=== PATIENT | female | born 1995 ===

== ENCOUNTER 2018-02-02 19:52 | Emergency (ER) | payer OTHER ==
[2018-02-02] MEDS ORDERED: Al Hydrox/Mg Hydrox/Simet LIQ* 30 ML UDC PO ONE (20:13)
[2018-02-02] MEDS ORDERED: Lidocaine 2% VISCOUS* 15 ML UDC PO ONE (20:14)
--- NOTE | 2018-02-02 21:04 | UC ---
Cardiac HPI - HPI Summary HPI Summary: 22-year-old woman 22-year-old woman comes to clinic today with a chief complaint of chest pain. This started 2 days ago. It's sternal. Pain is worse with swallowing evening and also taking a deep breath. No fevers or chills does not feel short of breath. Does have a sore throat. No radiation. Discomforts about a 4 out of 10 at the worst. It gets a little better and a little worse at times. No significant change with activity. Patient had an Mirena IUD placed 6 days ago. No known family history of blood clots. No recent travel. No calf pain or tenderness. No known blood disease. - History of Current Complaint Chief Complaint: UCChestPain Stated Complaint: CHEST PAIN Time Seen by Provider: 02/02/18 20:01 Hx Last Menstrual Period: 01/26/18 Pain Intensity: 3 - Allergy/Home Medications Allergies/Adverse Reactions: Allergies Allergy/AdvReac Type Severity Reaction Status Date / Time No Known Allergies Allergy Verified 02/02/18 19:55 Home Medications: Home Medications Levonorgestrel (Iud) [Mirena IUD] 1 implant ONCE 02/02/18 [History Confirmed ] PMH/Surg Hx/FS Hx/Imm Hx Previously Healthy: Yes - Surgical History Surgical History: None - Family History Known Family History: Negative: Blood Disorder - Social History Alcohol Use: Occasionally Substance Use Type: None Smoking Status (MU): Never Smoked Tobacco Review of Systems All Other Systems Reviewed And Are Negative: Yes Constitutional: Positive: Negative Skin: Positive: Negative Eyes: Positive: Negative ENT: Positive: Negative Respiratory: Positive: Negative Cardiovascular: Positive: Chest Pain Gastrointestinal: Positive: Negative Genitourinary: Positive: Negative Motor: Positive: Negative Neurovascular: Positive: Negative Musculoskeletal: Positive: Negative Neurological: Positive: Negative Psychological: Positive: Negative Is Patient Immunocompromised?: No Physical Exam Triage Information Reviewed: Yes Appearance: Well-Appearing, No Pain Distress, Well-Nourished Vital Signs: Initial Vital Signs Temp 97 F 02/02/18 19:56 Pulse 87 02/02/18 19:56 Resp 18 02/02/18 19:56 BP 122/73 02/02/18 19:56 Pulse Ox 97 02/02/18 19:56 Vital Signs Reviewed: Yes Eye Exam: Normal Eyes: Positive: Conjunctiva Clear Neck exam: Normal Neck: Positive: Supple Respiratory: Positive: Lungs clear, Normal breath sounds, No respiratory distress, Other: - Mild tenderness to palpation in the superior sternum tenderness to palpation in the upper sternum Cardiovascular Exam: Normal Cardiovascular: Positive: RRR Abdomen Description: Positive: Nontender, Soft Musculoskeletal Exam: Normal Musculoskeletal: Positive: Strength Intact, ROM Intact, No Edema, Other: - NO CALF TENDERNESS Neurological Exam: Normal Neurological: Positive: Alert, Muscle Tone Normal Psychological Exam: Normal Psychological: Positive: Age Appropriate Behavior Skin Exam: Normal Diagnostics - EKG Cardiac Rate: NL - AT 20:21 Cardiac Rhythm: Sinus: Normal - 69BPM Ectopy: None ST Segment: Normal - Assessment/Plan Course Of Treatment: I reviewed the EKG and the chest x-ray results with the patient. EKG shows no acute disease process. Chest x-ray is also NAD. Radiologist reading is pending. Patient was given viscous lidocaine and Maalox in clinic and this decreased her pain briefly. Patient has no fevers she has no shortness of breath she is not tachycardic. She has no calf pain or tenderness. Her IUD is a progestin based IUD and therefore does not increase the risk of thrombosis. There is no family history of thrombosis no recent travel she is not a smoker. We discussed the possibility of a pulmonary embolus and the patient is low risk. She knows that if her condition gets worse she needs to get reevaluated in the emergency department. I also discussed the possibility of pericarditis. It has a normal EKG. Plan is to follow-up with [facility] go to the emergency department if she gets worse. We will start omeprazole here. - Clinical Impression Provider Diagnosis: Chest pain Discharge - Sign-Out/Discharge Documenting (check all that apply): Patient Departure All imaging exams completed and their final reports reviewed: No - Discharge Plan Condition: Stable Disposition: HOME Prescriptions: Omeprazole 20 mg PO BID #30 capsule. Patient Education Materials: Chest Pain (ED), Gastroesophageal Reflux Disease ( ED) Referrals: [facility] - Angelito SADLER [Primary Care Provider] - Additional Instructions: FOLLOW UP WITH YOUR DOCTOR. GO TO THE EMERGENCY DEPARTMENT FOR ANY WORSENING OF YOUR CONDITION; PAIN, SHORTNESS OF BREATH, YOU FEEL ILL OR QUESTIONS OR CONCERNS. - Billing Disposition and Condition Condition: STABLE Disposition: Home
[2018-02-02] MEDS ORDERED: Omeprazole CAP* 20 MG PO ONE (21:07)
--- NOTE | 2018-02-03 13:40 | UC ---
- Progress Note Progress Note: RADIOLOGY REPORT REVIEWED. UNREMARKABLE CHEST XRAY. NO CHANGE IN MANAGEMENT. Course/Dx - Diagnoses Provider Diagnoses: Chest pain Discharge - Sign-Out/Discharge Documenting (check all that apply): Post-Discharge Follow Up All imaging exams completed and their final reports reviewed: Yes - Discharge Plan Condition: Stable Disposition: HOME Prescriptions: Omeprazole 20 mg PO BID #30 capsule. Patient Education Materials: Chest Pain (ED), Gastroesophageal Reflux Disease ( ED) Referrals: [facility] - Angelito SADLER [Primary Care Provider] - Additional Instructions: FOLLOW UP WITH YOUR DOCTOR. GO TO THE EMERGENCY DEPARTMENT FOR ANY WORSENING OF YOUR CONDITION; PAIN, SHORTNESS OF BREATH, YOU FEEL ILL OR QUESTIONS OR CONCERNS. - Billing Disposition and Condition Condition: STABLE Disposition: Home
== END 2018-02-02 21:18 | disposition home or self-care (01) ==
LOC: UCEAST 19:52
DX: R07.9 Chest pain, unspecified (principal)
CPT/HCPCS: 71046; 93005; 99202; A9270-GY; G0463